=== PATIENT | male | born 1965 | race African-American/Black ===

== ENCOUNTER 2018-12-30 13:30 | Emergency (ER) | payer SELFPAY ==
[2018-12-30] MEDS ORDERED: FENTANYL CITR 100 MCG/2 ML ONE (13:40)
[2018-12-30] MEDS ORDERED: ONDANSETRON 4 MG/2 ML VIAL ONE (13:40)
[2018-12-30 14:10] LABS: Absolute Lymphocytes (CBC) 1.8 K/uL (0.7-4.9); Basophils % 0.4 % (0-1.3); Hematocrit 43.7 % (39.6-49.0); Lymphocytes % 22.5 % (15.3-44.8); MPV 8.5 fL (7.6-11.3); RBC Red Blood Cell Count 5.05 M/uL (4.33-5.43)
[2018-12-30 14:34] LABS: Potassium 4.1 mmol/L (3.5-5.1)
--- NOTE | 2018-12-30 15:04 | RAD REPORT ---
EXAM DESCRIPTION: CT - Stone Protocol - 12/30/2018 2:20 pm CLINICAL HISTORY: Right flank pain COMPARISON: None. TECHNIQUE: Axial 5 mm thick images were obtained without oral or IV contrast. The [id number] span s the entirety of the system including uppermost abdomen and lung bases. All CT scans are performed using dose optimization technique as appropriate and may include automated exposure control or mA/KV adjustment according to patient size. FINDINGS: Moderate right-sided hydronephrosis is present to the pelvic inlet level where there is a 5 mm obstructing calculus. More distally the ureter is decompressed. No other obstructing or nonobstr ucting calculi on the right. No left-sided hydronephrosis. No suspicious renal masses. Isodense manuel s and pyelonephritis are not excluded on a stone protocol CT scan. No urinary bladder suspicious find ing. No significant adrenal finding. Imaged portions of the liver, spleen and pancreas show no suspicious findings on non-contrast imaging . No gallbladder or biliary tree abnormality identified. Gallstones can be occult on CT imaging. No dilated large or small bowel. Detail is limited somewhat by respiratory motion. An acute GI proces s is not suspected. No hernia, mass or bulky lymphadenopathy noted. No free air, free fluid or inflammatory stranding. No significant bony abnormality. IMPRESSION: Moderate hydronephrosis of the right collecting system down to the pelvic inlet level. A 5 millimeter obstructing calculus is present. On a KUB projection the obstructing calculus is superimposed on the right sacral ala. Isodense masses and pyelonephritis are not excluded on stone protocol technique.
[2018-12-30] MEDS ORDERED: TAMSULOSIN 0.4 MG SR CAP ONE (15:15)
[2018-12-30] MEDS ORDERED: Magnesium Sulfate 2gm IVPB 2 G/50 ML BAG IV ONE (15:16)
[2018-12-30] MEDS ORDERED: NA CHLORIDE 0.9% 500 ML ONE (16:32)
--- NOTE | 2018-12-30 17:26 | ER ---
Nurse's Notes [facility] Name: Vivien Law Age: 53 yrs Sex: Male : 1965 Arrival Date: 12/30/2018 Time: 13:31 Bed 13 Private MD: Diagnosis: Calculus of kidney and ureter Presentation: 12/30 13:32 Presenting complaint: Patient states: right sided flank pain X 3 hours, vomit X 1. iw Transition of care: patient was not received from another setting of care. Onset of symptoms was December 30, 2018. Risk Assessment: Do you want to hurt yourself or someone else? Patient reports no desire to harm self or others. Initial Sepsis Screen: Does the patient meet any 2 criteria? No. Patient's initial sepsis screen is negative. Does the patient have a suspected source of infection? No. Patient's initial sepsis screen is negative. Care prior to arrival: None. 13:32 Method Of Arrival: Ambulatory iw 13:32 Acuity: PATY 3 iw Historical: - Allergies: 13:33 No Known Allergies; iw - Home Meds: 13:33 None [Active]; iw - PMHx: 13:33 None; iw - PSHx: 13:33 None; iw - Immunization history:: Adult Immunizations not up to date. - Social history:: Smoking status: Patient/guardian denies using tobacco. - Ebola Screening: : Patient negative for fever greater than or equal to 101.5 degrees Fahrenheit, and additional compatible Ebola Virus Disease symptoms Patient denies exposure to infectious person Patient denies travel to an Ebola-affected area in the 21 days before illness onset No symptoms or risks identified at this time. Screenin:14 Abuse screen: Denies threats or abuse. Denies injuries from another. Nutritional ph screening: No deficits noted. Tuberculosis screening: No symptoms or risk factors identified. Fall Risk None identified. Assessment: 14:05 General: Appears in no apparent distress. uncomfortable, slender, well groomed, ph Behavior is cooperative, appropriate for age, anxious, restless. Pain: Complains of pain in right flank. Neuro: Level of Consciousness is awake, alert, obeys commands, Oriented to person, place, time, situation. Cardiovascular: Capillary refill < 3 seconds in bilateral fingers Patient's skin is warm and dry. Respiratory: Airway is patent Respiratory effort is even, unlabored, Respiratory pattern is regular, symmetrical. GI: Reports lower abdominal pain, nausea, vomiting. : Reports pain in right flank(s), in lower back Denies inability to void. Derm: Skin is intact, is healthy with good turgor, Skin is pink, warm \T\ dry. Musculoskeletal: Circulation, motion, and sensation intact. Range of motion: intact in all extremities. 15:00 Reassessment: Patient appears in no apparent distress at this time. Patient and/or ph family updated on plan of care and expected duration. Pain level reassessed. Patient is alert, oriented x 3, equal unlabored respirations, skin warm/dry/pink. Pt resting quietly, reports that pain has decreased to 2/10 and denies nausea at this time, awaiting CT results. 16:15 Reassessment: Patient appears in no apparent distress at this time. Patient and/or ph family updated on plan of care and expected duration. Pain level reassessed. Patient is alert, oriented x 3, equal unlabored respirations, skin warm/dry/pink. Pt resting quietly w/ lights off in room, pt requested to provide urine sample, states that he is unable to urinate at this time. Vital Signs: 13:33 BP 142 / 70; Pulse 78; Resp 16; Pulse Ox 100% on R/A; Weight 92.99 kg; Height 6 ft. 0 iw in. (182.88 cm); Pain 10/10; 15:06 BP 138 / 72; Pulse 76; Resp 18; Pulse Ox 99% on R/A; ph 16:00 BP 138 / 76; Pulse 76; Resp 18; Pulse Ox 100% on R/A; ph 17:00 BP 131 / 70; Pulse 77; Resp 18; Temp 98.0; Pulse Ox 99% on R/A; Pain 3/10; ph 13:33 Body Mass Index 27.80 (92.99 kg, 182.88 cm) iw ED Course: 13:31 Patient arrived in ED. iw 13:31 Miriam Willis FNP-C is [facility]. kb 13:31 Zechariah Shirley MD is Attending Physician. kb 13:33 Triage completed. iw 13:33 Chelsea Rm RN is Primary Nurse. ph 13:33 Arm band placed on. iw 14:15 Patient has correct armband on for positive identification. Bed in low position. Call ph light in reach. Side rails up X 1. Pulse ox on. NIBP on. Door closed. Noise minimized. Warm blanket given. Cool cloth applied. Verbal reassurance given. 14:21 CT Stone Protocol In Process Unspecified. EDMS 17:27 Marcos Carey MD is Referral Physician. kb 17:49 No provider procedures requiring assistance completed. IV discontinued, intact, ph bleeding controlled, No redness/swelling at site. Pressure dressing applied. Administered Medications: 13:56 Drug: Zofran 4 mg Route: IVP; Site: left antecubital; ph 17:28 Follow up: Response: No adverse reaction ph 13:57 Drug: fentaNYL (PF) 25 mcg Route: IVP; Site: left antecubital; ph 14:30 Follow up: Response: No adverse reaction; Pain is decreased ph 15:29 Drug: Magnesium Sulfate 2 grams Route: IVPB; Infused Over: 2 hrs; Site: left ph antecubital; 17:28 Follow up: Response: No adverse reaction; IV Status: Completed infusion ph 15:29 Drug: Flomax 0.4 mg Route: PO; ph 17:27 Follow up: Response: No adverse reaction ph 16:39 Drug: NS 0.9% 500 ml Route: IV; Rate: bolus; Site: left antecubital; ph 17:23 Follow up: IV Status: Completed infusion; IV Intake: 500ml ph Intake: 17:23 IV: 500ml; Total: 500ml. ph Outcome: 17:25 Discharge ordered by MD. kb 17:49 Patient left the ED. tw2 17:49 Discharged to home ambulatory. ph 17:49 Condition: improved 17:49 Discharge instructions given to patient, Instructed on discharge instructions, follow up and referral plans. medication usage, Demonstrated understanding of instructions, follow-up care, medications, Prescriptions given X 4. Signatures: Dispatcher [employer] Miriam Back, STEPHON MCPHERSON-Renetta Simpson, RN DILMA iw Chelsea Rm RN RN ph Geovanna Gilliland RN RN tw2
--- NOTE | 2018-12-30 17:27 | EDPHYS ---
Physician Documentation [facility] [place], [place] Name: Vivien Law Age: 53 yrs Sex: Male : 1965 Arrival Date: 12/30/2018 Time: 13:31 Bed 13 Private MD: ED Physician Zechariah Shirley HPI: 12/30 15:11 This 53 yrs old Black Male presents to ER via Ambulatory with complaints of Flank Pain. kb 15:11 The patient complains of pain in the right flank. The pain does not radiate. Onset: The kb symptoms/episode began/occurred 2 hour(s) ago. Modifying factors: The symptoms are alleviated by nothing. the symptoms are aggravated by nothing. Associated signs and symptoms: Pertinent positives: vomiting, Pertinent negatives: diarrhea, dizziness, dysuria, fever, urinary frequency, headache, hematuria, nausea, pain radiating to the lower extremities. Severity of pain: At its worst the pain was moderate severe in the emergency department the pain is unchanged. The patient has not experienced similar symptoms in the past. The patient has not recently seen a physician. 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 Historical: - Allergies: 13:33 No Known Allergies; iw - Home Meds: 13:33 None [Active]; iw - PMHx: 13:33 None; iw - PSHx: 13:33 None; iw - Immunization history:: Adult Immunizations not up to date. - Social history:: Smoking status: Patient/guardian denies using tobacco. - Ebola Screening: : Patient negative for fever greater than or equal to 101.5 degrees Fahrenheit, and additional compatible Ebola Virus Disease symptoms Patient denies exposure to infectious person Patient denies travel to an Ebola-affected area in the 21 days before illness onset No symptoms or risks identified at this time. ROS: 15:11 Constitutional: Negative for fever, chills, and weight loss, ENT: Negative for injury, kb pain, and discharge, Neck: Negative for injury, pain, and swelling, Cardiovascular: Negative for chest pain, palpitations, and edema, Respiratory: Negative for shortness of breath, cough, wheezing, and pleuritic chest pain, Abdomen/GI: Negative for abdominal pain, nausea, vomiting, diarrhea, and constipation, MS/Extremity: Negative for injury and deformity, Skin: Negative for injury, rash, and discoloration, Neuro: Negative for headache, weakness, numbness, tingling, and seizure. 15:11 : Positive for flank pain. Exam: 15:11 Constitutional: This is a well developed, well nourished patient who is awake, alert, kb and in no acute distress. Head/Face: Normocephalic, atraumatic. ENT: Nares patent. No nasal discharge, no septal abnormalities noted. Tympanic membranes are normal and external auditory canals are clear. Oropharynx with no redness, swelling, or masses, exudates, or evidence of obstruction, uvula midline. Mucous membranes moist. Neck: Trachea midline, no thyromegaly or masses palpated, and no cervical lymphadenopathy. Supple, full range of motion without nuchal rigidity, or vertebral point tenderness. No Meningismus. Chest/axilla: Normal chest wall appearance and motion. Nontender with no deformity. No lesions are appreciated. Cardiovascular: Regular rate and rhythm with a normal S1 and S2. No gallops, murmurs, or rubs. Normal PMI, no JVD. No pulse deficits. Respiratory: Lungs have equal breath sounds bilaterally, clear to auscultation and percussion. No rales, rhonchi or wheezes noted. No increased work of breathing, no retractions or nasal flaring. Abdomen/GI: Soft, non-tender, with normal bowel sounds. No distension or tympany. No guarding or rebound. No evidence of tenderness throughout. Skin: Warm, dry with normal turgor. Normal color with no rashes, no lesions, and no evidence of cellulitis. MS/ Extremity: Pulses equal, no cyanosis. Neurovascular intact. Full, normal range of motion. Neuro: Awake and alert, GCS 15, oriented to person, place, time, and situation. Cranial nerves II-XII grossly intact. Motor strength 5/5 in all extremities. Sensory grossly intact. Cerebellar exam normal. Normal gait. 15:11 Back: CVA tenderness, that is mild, that is moderate, is noted on the right. Vital Signs: 13:33 BP 142 / 70; Pulse 78; Resp 16; Pulse Ox 100% on R/A; Weight 92.99 kg; Height 6 ft. 0 iw in. (182.88 cm); Pain 10/10; 15:06 BP 138 / 72; Pulse 76; Resp 18; Pulse Ox 99% on R/A; ph 16:00 BP 138 / 76; Pulse 76; Resp 18; Pulse Ox 100% on R/A; ph 17:00 BP 131 / 70; Pulse 77; Resp 18; Temp 98.0; Pulse Ox 99% on R/A; Pain 3/10; ph 13:33 Body Mass Index 27.80 (92.99 kg, 182.88 cm) iw MDM: 13:37 Patient medically screened. kb 15:10 Data reviewed: vital signs, nurses notes. Data interpreted: Pulse oximetry: on room air kb is 99 %. Interpretation: normal. 15:39 Counseling: I had a detailed discussion with the patient and/or guardian regarding: the kb historical points, exam findings, and any diagnostic results supporting the discharge/admit diagnosis, lab results, radiology results, the need for outpatient follow up, a urologist, to return to the emergency department if symptoms worsen or persist or if there are any questions or concerns that arise at home. ED course: Pain controlled at this time. Pt resting comfortably. Educated on need for follow up with urology. Verbal understanding received. Educated to return for worsening pain or any other concerns. Pt tolerating PO fluids. 12/30 13:37 Order name: Basic Metabolic Panel; Complete Time: 14:36 kb 12/30 13:37 Order name: CBC with Diff; Complete Time: 14:21 kb 12/30 13:37 Order name: CT Stone Protocol; Complete Time: 15:09 kb 12/30 17:29 Order name: Urine Dipstick--Ancillary (enter results) eb 12/30 13:37 Order name: IV Saline Lock; Complete Time: 13:56 kb 12/30 13:37 Order name: Labs collected and sent; Complete Time: 13:56 kb 12/30 15:11 Order name: Urine Dipstick-Ancillary (obtain specimen); Complete Time: 17:27 kb 12/30 15:55 Order name: Urine Dipstick-Ancillary (obtain specimen); Complete Time: 17:22 kb Administered Medications: 13:56 Drug: Zofran 4 mg Route: IVP; Site: left antecubital; ph 17:28 Follow up: Response: No adverse reaction ph 13:57 Drug: fentaNYL (PF) 25 mcg Route: IVP; Site: left antecubital; ph 14:30 Follow up: Response: No adverse reaction; Pain is decreased ph 15:29 Drug: Magnesium Sulfate 2 grams Route: IVPB; Infused Over: 2 hrs; Site: left ph antecubital; 17:28 Follow up: Response: No adverse reaction; IV Status: Completed infusion ph 15:29 Drug: Flomax 0.4 mg Route: PO; ph 17:27 Follow up: Response: No adverse reaction ph 16:39 Drug: NS 0.9% 500 ml Route: IV; Rate: bolus; Site: left antecubital; ph 17:23 Follow up: IV Status: Completed infusion; IV Intake: 500ml ph Disposition: 12/31 15:22 Co-signature as Attending Physician, Zechariah Shirley MD. Disposition: 12/30/18 17:25 Discharged to Home. Impression: Calculus of kidney and ureter. - Condition is Stable. - Discharge Instructions: Kidney Stones, [id number], Dietary Guidelines to Help Prevent Kidney Stones. - Prescriptions for Tylenol- Codeine #3 300-30 mg Oral Tablet - take 2 tablets by ORAL route every 6 hours As needed; 12 tablet. Zofran 4 mg Oral Tablet - take 1 tablet by ORAL route every 6 hours As needed; 20 tablet. Flomax 0.4 mg Oral Capsule, Sust. Release 24 hr - take 1 capsule by ORAL route once daily; 10 capsule. Diclofenac Sodium 75 mg Oral Tablet, Delayed Release (E.C.) - take 1 tablet by ORAL route 2 times per day As needed; 30 tablet. - Medication Reconciliation Form, Thank You Letter, Antibiotic Education, Prescription Opioid Use, Work release form form. - Follow up: Emergency Department; When: As needed; Reason: Worsening of condition. Follow up: Private Physician; When: 2 - 3 days; Reason: Recheck today's complaints, Continuance of care, Re-evaluation by your physician. Follow up: Marcos Carey MD; When: 2 - 3 days; Reason: Recheck today's complaints. Signatures: Dispatcher [employer] Miriam Back, [employer] PRODUCTION ADMINISTRATIVE ASSISTANT-Renetta Simpson RN RN iw Hall, Patricia, RN RN ph Wise, Tara, RN RN 2 Zechariah Shirley MD MD Corrections: (The following items were deleted from the chart) 12/30 17:27 17:25 12/30/2018 17:25 Discharged to Home. Impression: Calculus of kidney and ureter. kb Condition is Stable. Forms are Medication Reconciliation Form, Thank You Letter, Antibiotic Education, Prescription Opioid Use. Follow up: Emergency Department; When: As needed; Reason: Worsening of condition. Follow up: Private Physician; When: 2 - 3 days; Reason: Recheck today's complaints, Continuance of care, Re-evaluation by your physician. kb 17:49 17:27 12/30/2018 17:25 Discharged to Home. Impression: Calculus of kidney and ureter. tw2 Condition is Stable. Discharge Instructions: Kidney Stones, [id number], Dietary Guidelines to Help Prevent Kidney Stones. Prescriptions for Tylenol-Codeine #3 300-30 mg Oral Tablet - take 2 tablets by ORAL route every 6 hours As needed; 12 tablet, Zofran 4 mg Oral Tablet - take 1 tablet by ORAL route every 6 hours As needed; 20 tablet, Flomax 0.4 mg Oral Capsule, Sust. Release 24 hr - take 1 capsule by ORAL route once daily; 10 capsule, Diclofenac Sodium 75 mg Oral Tablet, Delayed Release (E.C.) - take 1 tablet by ORAL route 2 times per day As needed; 30 tablet. and Forms are Medication Reconciliation Form, Thank You Letter, Antibiotic Education, Prescription Opioid Use. Follow up: Emergency Department; When: As needed; Reason: Worsening of condition. Follow up: Private Physician; When: 2 - 3 days; Reason: Recheck today's complaints, Continuance of care, Re-evaluation by your physician. Follow up: Marcos Carey; When: 2 - 3 days; Reason: Recheck today's complaints. kb
[2018-12-30 17:42] LABS: Urine Blood 3+ (NEG); Urine Glucose NEGATIVE (NEG); Urine Protein NEGATIVE (NEG); Urine pH 8.5 (5.0-7.0)
[2018-12-30 19:41] VITALS: BP 138/76; O2SAT 100
== END 2018-12-30 17:49 | disposition home or self-care (01) ==
LOC: ER 13:30
DX: N20.2 Calculus of kidney with calculus of ureter (principal)
CPT/HCPCS: 36415; 74176; 76377; 80048; 81003; 85025; 96365; 96366; 96375; 99284; J2405; J3010; J3475; J7040

== ENCOUNTER 2019-01-05 10:00 | Day surgery (SDC) | payer BC, SELFPAY ==
[2019-01-05 11:01] LABS: Urine Blood 1+ (NEG); Urine Glucose NEGATIVE (NEG); Urine Protein NEGATIVE (NEG); Urine Specific Gravity 1.015 (1.005-1.030); Urine pH 7.5 (5.0-7.0)
[2019-01-05 11:30] LABS: Urine Bacteria NONE SEEN /HPF (NONE SEEN); Urine Culture Reflex Order NOT NEEDED
--- NOTE | 2019-01-05 11:31 | RAD REPORT ---
EXAM DESCRIPTION: RAD - Abdomen 1 View (KUB) - 01/05/2019 11:14 am CLINICAL HISTORY: ABD PAIN Pain COMPARISON: Stone Protocol dated 12/30/2018 FINDINGS: The bowel gas pattern is non-obstructive. No evidence of free air or pneumatosis. Small ro und calcification projects over the right inferior aspect of the sacrum, possibly the patient's previ ously noted distal right ureter stone.
[2019-01-05 11:42] LABS: Absolute Lymphocytes (CBC) 1.9 K/uL (0.7-4.9); Basophils % 0.4 % (0-1.3); MPV 8.5 fL (7.6-11.3); RBC Red Blood Cell Count 4.81 M/uL (4.33-5.43)
[2019-01-05 12:00] LABS: Albumin 4.1 g/dL (3.4-5.0); Bilirubin Direct 0.1 mg/dL (0-0.2); Bilirubin Total 0.5 mg/dL (0.2-1.0); Potassium 4.2 mmol/L (3.5-5.1); Protein, Total 8.7 g/dL (6.4-8.2)
[2019-01-05] MEDS ORDERED: GENTAMICIN 100 MG/100 ML BAG 100 ML IV ONE (12:40)
[2019-01-05] MEDS ORDERED: Ringers Lactate 1,000 ML IV ONE (12:49)
--- NOTE | 2019-01-05 13:04 | ER ---
Nurse's Notes [facility] [place] Name: Viiven Law Age: 53 yrs Sex: Male : 1965 Arrival Date: 01/05/2019 Time: 10:03 Bed Treatment Private MD: Unknown, Unknown Diagnosis: Calculus of ureter Presentation: 01/05 10:09 Presenting complaint: Right flank pain and nausea x 5 days, weakness and near syncope x hb 2 days. Pt was seen in ED for same s/s last week, unable to see Dr. Carey due to insurance. Transition of care: patient was not received from another setting of care. Onset of symptoms was December 31, 2018. Risk Assessment: Do you want to hurt yourself or someone else? Patient reports no desire to harm self or others. Initial Sepsis Screen: Does the patient meet any 2 criteria? No. Patient's initial sepsis screen is negative. Does the patient have a suspected source of infection? No. Patient's initial sepsis screen is negative. Care prior to arrival: None. 10:09 Method Of Arrival: Ambulatory hb 10:09 Acuity: PATY 3 hb Historical: - Allergies: 10:11 No Known Allergies; hb - Home Meds: 12:33 None [Active]; tw2 - PMHx: 12:33 None; tw2 - PSHx: 10:11 None; hb - Immunization history:: Adult Immunizations up to date. - Social history:: Smoking status: Patient/guardian denies using tobacco. - Ebola Screening: : No symptoms or risks identified at this time. Screenin:14 Abuse screen: Denies threats or abuse. Nutritional screening: No deficits noted. tw2 Tuberculosis screening: No symptoms or risk factors identified. Fall Risk None identified. Assessment: 10:13 General: Appears in no apparent distress. well groomed, Behavior is calm, cooperative, tw2 appropriate for age. Pain: Complains of pain in right mid back and right low back. Neuro: Level of Consciousness is awake, alert, obeys commands, Oriented to person, place, time, situation. Cardiovascular: Heart tones S1 S2 Patient's skin is warm and dry. Respiratory: Airway is patent Respiratory effort is even, unlabored, Respiratory pattern is regular, symmetrical, Breath sounds are clear bilaterally. GI: Abdomen is flat, Bowel sounds present X 4 quads. Abd is soft X 4 quads. : No signs and/or symptoms were reported regarding the genitourinary system. EENT: No signs and/or symptoms were reported regarding the EENT system. Derm: No signs and/or symptoms reported regarding the dermatologic system. Musculoskeletal: Range of motion: intact in all extremities. 10:58 Reassessment: pt taken to Xray at this time. tw2 11:40 Reassessment: pt reports NPO since 11pm last night. tw2 11:42 Reassessment: Patient appears in no apparent distress at this time. No changes from tw2 previously documented assessment. Patient and/or family updated on plan of care and expected duration. Pain level reassessed. Patient is alert, oriented x 3, equal unlabored respirations, skin warm/dry/pink. Vital Signs: 10:09 BP 159 / 98; Pulse 86; Resp 16; Temp 97.8; Pulse Ox 100% on R/A; Weight 83.01 kg; hb Height 5 ft. 9 in. (175.26 cm); Pain 5/10; 11:40 BP 156 / 90; Pulse 59; Resp 17; Pulse Ox 100% on R/A; tw2 10:09 Body Mass Index 27.02 (83.01 kg, 175.26 cm) hb ED Course: 10:03 Patient arrived in ED. as 10:03 Unknown, Unknown is Private Physician. as 10:11 Triage completed. hb 10:11 Arm band placed on. hb 10:13 Geovanna Gilliland, RN is Primary Nurse. tw2 10:14 Bed in low position. Call light in reach. tw2 10:17 John Barnes PA is PHCP. [facility] 10:17 Kedar Issa MD is Attending Physician. [facility] 10:41 Urine collected: clean catch specimen, clear. dh3 11:14 Abdomen 1 View (KUB) In Process Unspecified. EDMS 11:24 Initial lab(s) drawn, by me, sent to lab. Inserted saline lock: 20 gauge in left dh3 antecubital area, using aseptic technique. Blood collected. 12:42 No provider procedures requiring assistance completed. Patient admitted, IV remains in tw2 place. 13:03 Marcos Carey MD is Hospitalizing Provider. [facility] Administered Medications: No medications were administered Outcome: 12:42 Admitted to OR accompanied by nurse. tw2 12:42 Condition: stable 12:42 Instructed on the need for admit. 13:03 Decision to Hospitalize by Provider. rolando 13:04 Patient left the ED. tw2 Signatures: Dispatcher [employer] EDMS John Barnes PA PA jmm Martinez, Amelia as Baxter, Heather, RN RN Geovanna Gilliland RN RN tw2 Jayna Mal[facility]
--- NOTE | 2019-01-05 13:05 | EDPHYS ---
Physician Documentation [facility] Name: Vivien Law Age: 53 yrs Sex: Male : 1965 Arrival Date: 01/05/2019 Time: 10:03 Bed Treatment Private MD: Unknown, Unknown ED Physician Kedar Issa HPI: 01/05 10:30 This 53 yrs old Black Male presents to ER via Ambulatory with complaints of Abdominal jmm Pain. 10:30 The patient presents with abdominal pain. Onset: The symptoms/episode began/occurred jmm gradually, 6 day(s) ago. The symptoms do not radiate. Modifying factors: The symptoms are alleviated by nothing, the symptoms are aggravated by nothing. This is a 53 year old male with no chronic medical conditions that presents to the ED with complaints of right sided flank pain which began 6 days ago. Patient diagnosed with ureteral calculus. Patient states he has not had a bowel movement since and complains of fatigue and weakness. . Historical: - Allergies: 10:11 No Known Allergies; hb - Home Meds: 12:33 None [Active]; tw2 - PMHx: 12:33 None; tw2 - PSHx: 10:11 None; hb - Immunization history:: Adult Immunizations up to date. - Social history:: Smoking status: Patient/guardian denies using tobacco. - Ebola Screening: : No symptoms or risks identified at this time. ROS: 10:30 Cardiovascular: Negative for chest pain, palpitations, and edema, Respiratory: Negative jmm for shortness of breath, cough, wheezing, and pleuritic chest pain. 10:30 Constitutional: Positive for fatigue. 10:30 Abdomen/GI: Positive for abdominal pain. 10:30 Neuro: Positive for near syncope. 10:30 All other systems are negative. Exam: 10:30 Constitutional: This is a well developed, well nourished patient who is awake, alert, jmm and in no acute distress. Head/Face: atraumatic. Eyes: EOMI, no conjunctival erythema appreciated ENT: Moist Mucus Membranes Neck: Trachea midline, Supple Chest/axilla: Normal chest wall appearance and motion. 10:30 Back: Normal ROM Skin: General appearance color normal MS/ Extremity: Moves all extremities, no obvious deformities appreciated, no edema noted to the lower extremities Neuro: Awake and alert, normal gait Psych: Behavior is normal, Mood is normal, Patient is cooperative and pleasant 10:30 Cardiovascular: Rate: normal, Rhythm: regular. 10:30 Respiratory: the patient does not display signs of respiratory distress, Respirations: normal, Breath sounds: are clear throughout. Vital Signs: 10:09 BP 159 / 98; Pulse 86; Resp 16; Temp 97.8; Pulse Ox 100% on R/A; Weight 83.01 kg; hb Height 5 ft. 9 in. (175.26 cm); Pain 5/10; 11:40 BP 156 / 90; Pulse 59; Resp 17; Pulse Ox 100% on R/A; tw2 10:09 Body Mass Index 27.02 (83.01 kg, 175.26 cm) hb MDM: 10:30 Patient medically screened. [facility] 12:54 Data reviewed: vital signs, nurses notes. [facility] 13:02 ED course: I left a voicemail with Dr. Carey to discuss the patient. Office contacted [facility] RN to make patient NPO. Dr. Carey visited with the patient. Patient taken to day surgery. . 01/05 10:41 Order name: Urine Microscopic Only; Complete Time: 11:37 3 01/05 10:42 Order name: Urine Dipstick--Ancillary (enter results); Complete Time: 11:02 em1 01/05 10:54 Order name: Basic Metabolic Panel; Complete Time: 12:04 [facility] 01/05 10:54 Order name: CBC with Diff; Complete Time: 11:47 [facility] 01/05 10:54 Order name: Creatinine for Radiology; Complete Time: 12:01 [facility] 01/05 10:54 Order name: Hepatic Function; Complete Time: 12:04 [facility] 01/05 10:31 Order name: Urine Dipstick-Ancillary (obtain specimen); Complete Time: 10:41 [facility] 01/05 10:32 Order name: Abdomen 1 View (KUB); Complete Time: 11:37 [facility] 01/05 10:54 Order name: Lipase; Complete Time: 12:04 [facility] 01/05 10:54 Order name: IV Saline Lock; Complete Time: 11:30 [facility] 01/05 10:54 Order name: Labs collected and sent; Complete Time: 11:30 [facility] 01/05 11:42 Order name: NPO: per Dr. Carey's office; Complete Time: 12:42 tw2 Administered Medications: No medications were administered Disposition: 01/06 07:31 Co-signature as Attending Physician, Kedar Issa MD I agree with the assessment and kdr plan of care. Disposition: 01/05/19 13:03 Hospitalization ordered by Marcos Carey for Observation. Preliminary diagnosis is Calculus of ureter. - Bed requested for DAY SURGERY OTHER. - Status is Observation. tw2 - Condition is Stable. - Problem is new. - Symptoms are unchanged. UTI on Admission? Yes Signatures: Dispatcher [employer] EDOR Kedar Issa MD MD [facility] John Barnes PA PA [facility] Bhakti Ott, RN RN Geovanna Gilliland RN RN tw2 Corrections: (The following items were deleted from the chart) 01/05 11:06 10:32 Abdomen 1 View (KUB)+RAD.RAD.BRZ ordered. EDOR EDOR 13:04 13:03 Hospitalization Ordered by Marcos Carey MD for Observation. Preliminary tw2 diagnosis is Calculus of ureter. Bed requested for DAY SURGERY OTHER. Status is Observation. Condition is Stable. Problem is new. Symptoms are unchanged. UTI on Admission? Yes. [facility]
[2019-01-05] MEDS ORDERED: LIDOCAINE 1% MPF 5 ML VIAL ONE (13:26)
[2019-01-05] MEDS ORDERED: MIDAZOLAM HCL 2 MG/2 ML INJ ONE (13:26)
[2019-01-05] MEDS ORDERED: PROPOFOL 200 MG/20 ML VIAL IV ONE (13:26)
[2019-01-05] MEDS ORDERED: FENTANYL CITR 100 MCG/2 ML ONE (13:26)
[2019-01-05] MEDS ORDERED: KETOROLAC 30 MG/ML INJ ONE (13:52)
[2019-01-05] MEDS ORDERED: ONDANSETRON 4 MG/2 ML VIAL ONE (13:54)
[2019-01-05] MEDS ORDERED: Mastisol Adhesive Liq ONE (14:18)
[2019-01-05 14:49] VITALS: O2SAT 100
--- NOTE | 2019-01-05 16:20 | RAD REPORT ---
EXAM DESCRIPTION: RAD - Urography Retrograde - 01/05/2019 4:15 pm CLINICAL HISTORY: STENT COMPARISON: <Comparisons> FINDINGS: Total fluoro time: 1 minutes and 32 seconds
--- NOTE | 2019-01-05 16:55 | CON ---
Subjective: A 53-year-old gentleman from [facility], works as a court officer in [place], was in good state of health until about a week ago, developed sudden right flank pain associated with nausea and vomiting. He came to the ER, a scan was done. He tried to see me last Thursday, but I was not in the office. N.P. called me on the phone that he was having problems, was sent to the ER and consented for cysto, possible ureteroscopy, stone extraction versus stent placement. He knows all the general information, alternatives, and risks and wishes to proceed. Past Medical History: None. Past Surgical History: None. Medications: None. Allergies: NONE. Social History: No tobacco, no smoking, no drinking. 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 He is from [facility]. Review of Systems: Ten-point review of system otherwise negative. Physical Examination: Vital Signs: Afebrile, stable. HEENT: Atraumatic, normocephalic. Lungs: Clear. Heart: S1, S2. Abdomen: Soft, nontender. Extremities: Normal range of motion. Laboratory Data: Normal white count 8.2, H and H are 15 and 43, platelet count 295. Chemistries show sodium 138, potassium 4.1, chloride 106, bicarb 27, glucose 143, BUN 15, creatinine 1.3, GFR 70, calcium 9.5, normal. UA shows 3+ blood, pH 8.5. CT scan showed a 5 mm stone, calculus present, right moderate hydronephrosis to the pelvic in the area. KUB projections stone will be superimposed on the right sacroiliac. Plan: We will try to do a cystoscopy, possible ureteroscopy, stone extraction. The patient knows all the general information, alternatives, and risks and wishes to proceed. DARNELL/DARRIAN Voice ID: [id number] Report ID: [id number]
[2019-01-05 17:10] VITALS: BP 128/81; TEMP 97.2
== END 2019-01-05 17:00 | disposition home or self-care (01) ==
LOC: ER 10:00 → DS 13:00
PROVIDERS: ATTEND Urology
PROC: 0T768DZ Dilation of Right Ureter with Intraluminal Device, Via Natural or Artificial Opening Endoscopic (ICD-10-PCS; 2019-01-05)
PROC: 0TF68ZZ Fragmentation in Right Ureter, Via Natural or Artificial Opening Endoscopic (ICD-10-PCS; principal; 2019-01-05 16:00)
DX: N20.1 Calculus of ureter (principal)
CPT/HCPCS: 85025; 80048; 36415; 80076; 88300; 83690; 82360; 74018; 74420; 99285; 52356; J2704; J2250; J3010; J1580; J7120; J2405; 81003; 81015